=== PATIENT | female | born 1990 | race Hispanic/Latino ===

== ENCOUNTER 2020-08-28 15:08 | Emergency (ER) | payer BC ==
--- OUTSIDE RECORDS SUMMARY | 2020-08-28 15:11 | XMS REPORT | Continuity of Care Document ---
:1990 Author Organization [facility] t Address [address] [place] [address] Care Team Providers Name Role Phone Unavailable Unavailable Unavailable Problems This patient has no known problems. Allergies, Adverse Reactions, Alerts This patient has no known allergies or adverse reactions. Medications Ordered Filled Start Stop Current Ordering Indication Dosage Frequency Signature Comments Components Source Medication Medication Date Date Medication? Clinician (SIG) Name Name metronidazo metronidazo No metronidaz [place] 500 mg le 500 mg ole 500 mg da tablet TK 1 tablet TK 1 tablet TK [facility] T PO Q 8 H T PO Q 8 H 1 T PO Q 8 al [facility] ondansetron ondansetron No ondansetro [place] HCl 4 mg HCl 4 mg n HCl 4 mg d a tablet TK 1 tablet TK 1 tablet TK [facility] T PO Q 8 H T PO Q 8 H 1 T PO Q 8 al PRN NV PRN NV H PRN [facility] prednisone prednisone No prednisone [place] 10 mg 10 mg 10 mg da tablet TK 1 tablet TK 1 tablet TK [facility] T PO D T PO D 1 T PO D al [facility] prednisone prednisone No prednisone [place] 20 mg 20 mg 20 mg da tablet TK 1 tablet TK 1 tablet TK [facility] T PO D. T PO D. 1 T PO D. al [facility] prednisone prednisone No prednisone [place] 5 mg tablet 5 mg tablet 5 mg d a TK 1 T PO TK 1 T PO tablet TK [facility] D D 1 T PO D al [facility] sulfasalazi sulfasalazi No sulfasalaz [place] 500 mg ne 500 mg ine 500 mg da tablet TK 1 tablet TK 1 tablet TK [facility] T PO TID T PO TID 1 T PO al TID [facility] tramadol 50 tramadol 50 No tramadol [place] mg tablet mg tablet 50 mg da TK 1 T PO Q TK 1 T PO Q tablet TK [facility] 8 H FOR 7 8 H FOR 7 1 T PO Q 8 al DAYS PRF DAYS PRF H FOR 7 Heal th PAIN PAIN DAYS PRF Outreac PAIN h Program ciprofloxac ciprofloxac No ciprofloxa [place] 500 mg in 500 mg aston 500 mg da tablet TK 1 tablet TK 1 tablet TK [facility] T PO Q 12 H T PO Q 12 H 1 T PO Q al 12 H [facility] methylpredn methylpredn No methylpred [place] isolone 4 isolone 4 nisolone 4 da mg tablets mg tablets mg tablets [facility] in a dose in a dose in a dose al pack TK UTD pack TK UTD pack TK Health UTD Outreac h Program Immunizations Ordered Immunization Filled Immunization Date Status Commen ts Source Name Name COVID-19 mRNA, COVID-19, mRNA, 2020-07-03 Completed [facility]oy h[facility] LNP-S, PF, 100 LNP-S, PF, 100 11:40:59 [facility] mcg/0.5 mL dose mcg/0.5 mL dose Outr each Program COVID-19, mRNA, COVID-19, mRNA, 2020-06-05 Completed [place]oy hong LNP-S, PF, 100 LNP-S, PF, 100 15:01:08 [facility] mcg/0.5 mL dose mcg/0.5 mL dose Outr each Program Procedures This patient has no known procedures. Encounters Start End Encounter Admission Attending Care Care Encounter Source Date/Time Date/Time Type Type Clinicians Facility Department ID 2020-07-03 2020-07-03 Donna [place] - [id number] [facility] 00:00:00 00:00:00 Derek Prince [facility] [address] [facility] [id number] h , Ph. Program 2020-06-05 2020-06-05 Donna [place]PE [place] - [id number] [facility] 00:00:00 00:00:00 Derek Prince MD: [address] [facility] - [facility], [facility] [id number] h , Ph. Program Results This patient has no known results.
[2020-08-28 16:52] LABS: Absolute Lymphocytes (CBC) 0.7 K/uL (0.7-4.9); Basophils % 0.3 % (0-1.3); Hematocrit 31.1 % (36.0-45.0); Lymphocytes % 9.5 % (15.3-44.8); MPV 8.2 fL (7.6-11.3); RBC Red Blood Cell Count 3.88 M/uL (3.86-4.86)
[2020-08-28 16:58] LABS: ALT/SGPT 13 U/L (12-78); AST/SGOT 11 U/L (15-37); Albumin 3.3 g/dL (3.4-5.0); Alkaline Phosphatase 100 U/L (45-117); BUN Blood Urea Nitrogen 13 mg/dL (7-18); Bicarbonate 24 mmol/L (21-32); Bilirubin Direct < 0.1 mg/dL (0-0.2); Bilirubin Total 0.4 mg/dL (0.2-1.0); Glucose Level 104 mg/dL (74-106); Lipase 52 U/L (73-393); Potassium 3.1 mmol/L (3.5-5.1); Protein, Total 8.4 g/dL (6.4-8.2); Sodium Level 138 mmol/L (136-145)
[2020-08-28] MEDS ORDERED: FENTANYL CITR 100 MCG/2 ML ONE ×2 (17:05→20:01)
[2020-08-28] MEDS ORDERED: NA CHLORIDE 0.9% 1,000 ML ONE ×2 (17:06→19:19)
[2020-08-28] MEDS ORDERED: ONDANSETRON 4 MG/2 ML VIAL ONE (17:06)
[2020-08-28 18:26] LABS: Urine Blood 1+ (Negative); Urine Glucose Negative (Negative); Urine Protein Negative (Negative); Urine Specific Gravity 1.015 (1.005-1.030)
[2020-08-28 18:43] LABS: Urine Specific Gravity/Preg 1.015 (1.005-1.030)
--- NOTE | 2020-08-28 19:04 | RAD REPORT ---
EXAM DESCRIPTION: CTAbdomen Pelvis W Contrast - 08/28/2020 6:49 pm CLINICAL HISTORY: Abdominal pain. ABD PAIN COMPARISON: No comparisons TECHNIQUE: Biphasic CT imaging of the abdomen and pelvis was performed with 100 ml non-ionic IV cont rast. All CT scans are performed using dose optimization technique as appropriate and may include automated exposure control or mA/KV adjustment according to patient size. FINDINGS: The lung bases are clear. The liver, spleen, pancreas, adrenal glands and left kidney are within normal limits. 2 mm calculus i s present inferior right kidney. No bowel obstruction, free air, free fluid or abscess. Mild mucosal enhancement pattern is seen parti cularly the descending colon and rectosigmoid colon suggesting mild left-sided colitis pattern. The a ppendix is not identified as a discrete structure, however, no secondary findings of appendicitis are identified. No evidence of significant lymphadenopathy. No suspicious bony findings. IMPRESSION: Mild left-sided colitis pattern is identified. No bowel obstruction or abscess. Nonobstructing 2 mm right renal calculus.
[2020-08-28 19:56] LABS: Anisocytosis 1+; Blood Morphology Comment NOTED (NOT SEEN); Platelet Estimate INCR; Poikilocytosis 2+; White Blood Cell Scan OK (OK)
[2020-08-28] MEDS ORDERED: CIPROFLOXACIN HCL 500 MG TAB ONE (20:00)
[2020-08-28] MEDS ORDERED: metroNIDAZOLE 500 MG TABLET ONE (20:00)
[2020-08-28] MEDS ORDERED: ACETAMINOPHEN 500 MG TAB ONE (20:22)
[2020-08-28] MEDS ORDERED: POTASSIUM CL SA 10 MEQ TAB PO ONE (20:22)
--- NOTE | 2020-08-28 20:45 | ER ---
Nurse's Notes [facility] Name: Nafisa Ellison Age: 29 yrs Sex: Female : 1990 Arrival Date: 08/28/2020 Time: 15:10 Bed 15 Private MD: Diagnosis: Left sided colitis Presentation: 08/28 15:38 Chief complaint: Patient states: Reports abd. pain with N/V/D for 2 days. States she ll1 has had colitis since last August. No fever. Coronavirus screen: Client denies travel out of the [place] in the last 14 days. At this time, the client does not indicate any symptoms associated with coronavirus-19. Ebola Screen: Patient denies travel to an Ebola-affected area in the 21 days before illness onset. Initial Sepsis Screen: Does the patient meet any 2 criteria? HR > 90 bpm. No. Patient's initial sepsis screen is negative. Does the patient have a suspected source of infection? Yes: Acute abdominal pain. Risk Assessment: Do you want to hurt yourself or someone else? Patient reports no desire to harm self or others. Onset of symptoms was August 27, 2020. 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 - Social history:: Smoking status: Patient denies any tobacco usage or history of. Screenin:43 Abuse screen: Denies threats or abuse. Denies injuries from another. Nutritional jl7 screening: No deficits noted. Tuberculosis screening: No symptoms or risk factors identified. Fall Risk IV access (20 points). Total Patel Fall Scale indicates No Risk (0-24 pts). Assessment: 16:30 General: Appears in no apparent distress. uncomfortable, ill, Behavior is calm, jl7 cooperative, appropriate for age. Pain: Complains of pain in right lower quadrant and left lower quadrant Pain currently is 10 out of 10 on a pain scale. Neuro: Level of Consciousness is awake, alert, obeys commands, Oriented to person, place, time, situation. Cardiovascular: Patient's skin is warm and dry. Respiratory: Airway is patent Respiratory effort is even, unlabored, Respiratory pattern is regular, symmetrical. GI: Abdomen is flat, non-distended, Reports lower abdominal pain, diarrhea, rectal bleeding, bloody stool. Derm: Skin is dry, Skin is pale, Skin temperature is warm. 17:30 Reassessment: Patient appears in no apparent distress at this time. No changes from jl7 previously documented assessment. Patient and/or family updated on plan of care and expected duration. Pain level reassessed. Patient is alert, oriented x 3, equal unlabored respirations, skin warm/dry/pink. 18:30 Reassessment: Patient appears in no apparent distress at this time. Patient and/or jl7 family updated on plan of care and expected duration. Pain level reassessed. Patient is alert, oriented x 3, equal unlabored respirations, skin warm/dry/pink. 20:00 Reassessment: Patient appears in no apparent distress at this time. Patient is alert, rr5 oriented x 3, equal unlabored respirations, skin warm/dry/pink. Patient states symptoms have improved. 20:56 Reassessment: Patient appears in no apparent distress at this time. Patient is alert, rr5 oriented x 3, equal unlabored respirations, skin warm/dry/pink. discharge instruction given and explained without complaints made. Vital Signs: 15:38 BP 112 / 86; Pulse 107; Resp 17; Temp 98.5; Pulse Ox 95% ; Weight 45.36 kg; Height 5 ll1 ft. 4 in. (162.56 cm); Pain 10/10; 17:43 BP 103 / 51; Pulse 86; Resp 15; Pulse Ox 100% ; jl7 19:00 BP 113 / 57; Pulse 91; Resp 15; Pulse Ox 100% ; jl7 19:35 BP 112 / 59; Pulse 91; Resp 19; Temp 100.4; Pulse Ox 100% ; Pain 8/10; rr5 20:16 BP 115 / 75; Pulse 95; Resp 17; Pulse Ox 99% ; Pain 4/10; rr5 20:56 BP 112 / 68; Pulse 90; Resp 16; Temp 99.8; Pulse Ox 100% ; rr5 15:38 Body Mass Index 17.16 (45.36 kg, 162.56 cm) ll1 ED Course: 15:10 Patient arrived in ED. as 15:39 Triage completed. ll1 15:41 Arm band placed on Patient placed in an exam room, on a stretcher. ll1 16:02 Yelena Coreas FNP-C is [facility]. kb 16:02 Funmilayo Fischer MD is Attending Physician. kb 16:02 Ira Haile RN is Primary Nurse. jl7 16:30 Patient has correct armband on for positive identification. Placed in gown. Bed in low jl7 position. Call light in reach. Side rails up X 1. Pulse ox on. NIBP on. Warm blanket given. 16:30 Initial lab(s) drawn, by me, sent to lab. T\T\S collected, blood band applied to patient. jl7 Inserted saline lock: 20 gauge in right antecubital area, using aseptic technique. Blood collected. 17:15 Type And Screen Sent. jl7 17:38 Radiology exam delayed due to test not completed at this time. 2 17:41 Repeat lab(s) drawn. by me, sent to lab. T\T\S collected, blood band applied to patient. jl7 18:15 Basic Metabolic Panel Sent. jl7 18:15 CBC with Diff Sent. jl7 18:15 Lipase Sent. jl7 18:16 Hepatic Function Sent. jl7 18:48 CT Abd/Pelvis - IV Contrast Only In Process Unspecified. EDMS 20:57 No provider procedures requiring assistance completed. IV discontinued, intact, rr5 bleeding controlled, No redness/swelling at site. Pressure dressing applied. Administered Medications: 16:51 Drug: NS 0.9% 1000 ml Route: IV; Rate: 1000 ml; Site: right antecubital; jl7 18:00 Follow up: Response: No adverse reaction; IV Status: Completed infusion; IV Intake: jl7 1000ml 16:52 Drug: Zofran (Ondansetron) 4 mg Route: IVP; Site: right antecubital; jl7 17:15 Follow up: Response: No adverse reaction jl7 16:52 Drug: fentaNYL (PF) 25 mcg Route: IVP; Site: right antecubital; jl7 17:00 Follow up: Response: No adverse reaction; Pain is decreased jl7 18:33 Drug: fentaNYL (PF) 25 mcg Route: IVP; Site: right antecubital; jl7 19:30 Follow up: Response: No adverse reaction; Pain is unchanged, physician notified; RASS: rr5 Alert and Calm (0) 19:00 Drug: NS 0.9% 1000 ml Route: IV; Rate: 1000 ml; Site: right antecubital; jl7 20:15 Follow up: Response: No adverse reaction; IV Status: Completed infusion; IV Intake: rr5 1000ml 19:45 Drug: fentaNYL (PF) 25 mcg {Note: rasss 0.} Route: IVP; Site: right antecubital; rr5 20:15 Follow up: Response: No adverse reaction; Pain is decreased; RASS: Alert and Calm (0) rr5 19:48 Drug: Cipro (ciprofloxacin) 500 mg Route: PO; rr5 20:45 Follow up: Response: No adverse reaction rr5 19:48 Drug: Flagyl (metroNIDAZOLE) 500 mg Route: PO; rr5 20:40 Follow up: Response: No adverse reaction rr5 20:05 Drug: Tylenol 1000 mg Route: PO; rr5 20:58 Follow up: Response: No adverse reaction rr5 20:15 Drug: Potassium Chloride 40 mEq Route: PO; rr5 20:58 Follow up: Response: No adverse reaction rr5 20:40 Drug: SOLU-Medrol (methylPrednisoLONE) 125 mg Route: IVP; Site: right antecubital; rr5 20:58 Follow up: Response: No adverse reaction rr5 Intake: 18:00 IV: 1000ml; Total: 1000ml. jl7 20:15 IV: 1000ml; Total: 2000ml. rr5 Outcome: 20:44 Discharge ordered by . kb 20:57 Discharged to home ambulatory, with family. rr5 20:57 Condition: stable 20:57 Discharge instructions given to patient, Instructed on discharge instructions, follow up and referral plans. medication usage, Demonstrated understanding of instructions, follow-up care, medications, Prescriptions given X x5 20:59 Patient left the ED. rr5 Signatures: Dispatcher [employer] EDMS Yelena Coreas, Vanessa Stoddard Jahala, RN RN jl7 Kay Law [facility] Thiago Anglin RN RN rr5 Jey, Lynsay, RN RN ll1
--- NOTE | 2020-08-28 20:45 | EDPHYS ---
Physician Documentation [facility] Name: Nafisa Ellison Age: 29 yrs Sex: Female : 1990 Arrival Date: 08/28/2020 Time: 15:10 Bed 15 Private MD: ED Physician Funmilayo Fischer HPI: 08/29 01:08 This 29 yrs old Female presents to ER via Ambulatory with complaints of kb Abdominal Pain - colitis. 01:08 The patient presents with abdominal pain that is diffuse. The symptoms do not radiate. kb Severity of pain: At its worst the pain was moderate in the emergency department the pain is unchanged. The patient has experienced a previous episode. The patient has not recently seen a physician. 01:08 Onset: The symptoms/episode began/occurred 2 day(s) ago. Associated signs and symptoms: kb Pertinent positives: blood in stools, diarrhea, nausea. The symptoms are described as constant. Modifying factors: The symptoms are alleviated by nothing, the symptoms are aggravated by nothing. Pt reports she has ulcerative colitis. Has had diarrhea with blood and nausea for 3 days. States she sees Dr Evans for this and is on medications to control it that normally work well. . 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 - Social history:: Smoking status: Patient denies any tobacco usage or history of. ROS: 08/29 01:07 Constitutional: Negative for fever, chills, and weight loss. kb Abdomen/GI: Positive for abdominal pain, diarrhea, rectal bleeding. All other systems are negative. Exam: 01:07 Constitutional: This is a well developed, well nourished patient who is awake, alert, kb and in no acute distress. Head/Face: Normocephalic, atraumatic. ENT: Moist Mucous membranes Cardiovascular: Regular rate and rhythm with a normal S1 and S2. No gallops, murmurs, or rubs. No pulse deficits. Respiratory: Respirations even and unlabored. No increased work of breathing, no retractions or nasal flaring. Skin: Warm, dry with normal turgor. Normal color. MS/ Extremity: Pulses equal, no cyanosis. Neurovascular intact. Full, normal range of motion. Neuro: Awake and alert, GCS 15, oriented to person, place, time, and situation. Moves all extremities. Normal gait. Psych: Awake, alert, with orientation to person, place and time. Behavior, mood, and affect are within normal limits. 01:07 Abdomen/GI: Inspection: abdomen appears normal, Bowel sounds: normal, in all quadrants, Palpation: soft, in all quadrants, mild abdominal tenderness, in all quadrants. Vital Signs: 08/28 15:38 BP 112 / 86; Pulse 107; Resp 17; Temp 98.5; Pulse Ox 95% ; Weight 45.36 kg; Height 5 ll1 ft. 4 in. (162.56 cm); Pain 10/10; 17:43 BP 103 / 51; Pulse 86; Resp 15; Pulse Ox 100% ; jl7 19:00 BP 113 / 57; Pulse 91; Resp 15; Pulse Ox 100% ; jl7 19:35 BP 112 / 59; Pulse 91; Resp 19; Temp 100.4; Pulse Ox 100% ; Pain 8/10; rr5 20:16 BP 115 / 75; Pulse 95; Resp 17; Pulse Ox 99% ; Pain 4/10; rr5 20:56 BP 112 / 68; Pulse 90; Resp 16; Temp 99.8; Pulse Ox 100% ; rr5 15:38 Body Mass Index 17.16 (45.36 kg, 162.56 cm) ll1 MDM: 16:02 Patient medically screened. kb 20:59 Data reviewed: vital signs, nurses notes. Data interpreted: Pulse oximetry: on room air kb is 100 %. Interpretation: normal. Counseling: I had a detailed discussion with the patient and/or guardian regarding: the historical points, exam findings, and any diagnostic results supporting the discharge/admit diagnosis, lab results, radiology results, the need for outpatient follow up, a family practitioner, a director process improvement, to return to the emergency department if symptoms worsen or persist or if there are any questions or concerns that arise at home. ED course: Pt reports steroids helped the symptoms including bleeding last time she had this. Pt has appt with Dr Evans to follow up tomorrow. Pt agrees with plan of care of antibiotics, steroids, pain and nausea medication. Pt will return for worsening symptoms. Pain under control at this time. 08/28 16:02 Order name: Basic Metabolic Panel kb 08/28 16:02 Order name: CBC with Diff kb 08/28 16:02 Order name: Hepatic Function kb 08/28 16:02 Order name: Lipase kb 08/28 16:14 Order name: Type And Screen; Complete Time: 18:09 kb 08/28 16:58 Order name: Basic Metabolic Panel; Complete Time: 16:59 EDMS 08/28 16:28 Order name: CT Abd/Pelvis - IV Contrast Only; Complete Time: 19:12 kb 08/28 16:58 Order name: Liver (Hepatic) Function; Complete Time: 16:59 EDMS 08/28 16:58 Order name: Lipase; Complete Time: 16:59 EDMS 08/28 17:06 Order name: CBC with Automated Diff; Complete Time: 19:57 EDMS 08/28 18:14 Order name: ABO/RH no charge; Complete Time: 18:19 EDMS 08/28 18:25 Order name: Urine Dipstick-Ancillary; Complete Time: 18:28 EDMS 08/28 18:26 Order name: Urine --Ancillary (enter results); Complete Time: 18:46 mt 08/28 19:57 Order name: CBC Smear Scan; Complete Time: 19:57 EDMS 08/28 16:02 Order name: IV Saline Lock; Complete Time: 16:38 kb 08/28 16:02 Order name: Labs collected and sent; Complete Time: 16:38 kb 08/28 17:14 Order name: Labs - recollect needed; Complete Time: 17:40 mt Administered Medications: 16:51 Drug: NS 0.9% 1000 ml Route: IV; Rate: 1000 ml; Site: right antecubital; jl7 18:00 Follow up: Response: No adverse reaction; IV Status: Completed infusion; IV Intake: jl7 1000ml 16:52 Drug: Zofran (Ondansetron) 4 mg Route: IVP; Site: right antecubital; jl7 17:15 Follow up: Response: No adverse reaction jl7 16:52 Drug: fentaNYL (PF) 25 mcg Route: IVP; Site: right antecubital; jl7 17:00 Follow up: Response: No adverse reaction; Pain is decreased jl7 18:33 Drug: fentaNYL (PF) 25 mcg Route: IVP; Site: right antecubital; jl7 19:30 Follow up: Response: No adverse reaction; Pain is unchanged, physician notified; RASS: rr5 Alert and Calm (0) 19:00 Drug: NS 0.9% 1000 ml Route: IV; Rate: 1000 ml; Site: right antecubital; jl7 20:15 Follow up: Response: No adverse reaction; IV Status: Completed infusion; IV Intake: rr5 1000ml 19:45 Drug: fentaNYL (PF) 25 mcg {Note: rasss 0.} Route: IVP; Site: right antecubital; rr5 20:15 Follow up: Response: No adverse reaction; Pain is decreased; RASS: Alert and Calm (0) rr5 19:48 Drug: Cipro (ciprofloxacin) 500 mg Route: PO; rr5 20:45 Follow up: Response: No adverse reaction rr5 19:48 Drug: Flagyl (metroNIDAZOLE) 500 mg Route: PO; rr5 20:40 Follow up: Response: No adverse reaction rr5 20:05 Drug: Tylenol 1000 mg Route: PO; rr5 20:58 Follow up: Response: No adverse reaction rr5 20:15 Drug: Potassium Chloride 40 mEq Route: PO; rr5 20:58 Follow up: Response: No adverse reaction rr5 20:40 Drug: SOLU-Medrol (methylPrednisoLONE) 125 mg Route: IVP; Site: right antecubital; rr5 20:58 Follow up: Response: No adverse reaction rr5 Disposition: 08/28/20 20:44 Discharged to Home. Impression: Left sided colitis. - Condition is Stable. - Discharge Instructions: Ulcerative Colitis, Adult. - Prescriptions for Flagyl 500 mg Oral Tablet - take 1 tablet by ORAL route every 8 hours for 10 days; 30 tablet. Zofran 4 mg Oral Tablet - take 1 tablet by ORAL route every 6 hours As needed; 20 tablet. Cipro 500 mg Oral Tablet - take 1 tablet by ORAL route every 12 hours for 10 days; 20 tablet. Diclofenac Sodium 75 mg Oral Tablet, Delayed Release (E.C.) - take 1 tablet by ORAL route 2 times per day As needed; 30 tablet. Prednisone 20 mg Oral Tablet - take 1 tablet by ORAL route once daily for 5 days; 5 tablet. - Medication Reconciliation Form, Thank You Letter, Antibiotic Education, Prescription Opioid Use form. - Follow up: Private Physician; When: 2 - 3 days; Reason: Recheck today's complaints, Continuance of care, Re-evaluation by your physician. Follow up: Emergency Department; When: As needed; Reason: Worsening of condition. Signatures: Dispatcher [employer] EDKS Yelena Coreas, SEED CORE OPERATOR-C SEED CORE OPERATOR-Ira Staley RN RN jl7 Jony [place] Thiago Boucher RN RN rr5 Norma Khanna RN RN ll1 Corrections: (The following items were deleted from the chart) 20:59 20:44 08/28/2020 20:44 Discharged to Home. Impression: Left sided colitis. Condition is rr5 Stable. Forms are Medication Reconciliation Form, Thank You Letter, Antibiotic Education, Prescription Opioid Use. Follow up: Private Physician; When: 2 - 3 days; Reason: Recheck today's complaints, Continuance of care, Re-evaluation by your physician. Follow up: Emergency Department; When: As needed; Reason: Worsening of condition. kb
[2020-08-28] MEDS ORDERED: METHYLPREDNISOLONE 125 MG INJ ONE (21:09)
[2020-08-28 22:45] VITALS: BP 112/68; TEMP 99.8; O2SAT 100
== END 2020-08-28 20:59 | disposition home or self-care (01) ==
LOC: ER 15:08
DX: K51.50 Left sided colitis without complications (principal)
CPT/HCPCS: 85025; 80048; 36415; 86900; 86850; 81025; 86901; 80076; 81003; 83690; 74177; Q9967; J3010 ×2; J7030 ×2; J2930; J2405; 96361; 96374; 96375; 99284